=== PATIENT | male | born 1980 | race Two or more races ===

== ENCOUNTER 2024-02-23 18:34 | Emergency (ER) | payer SELFPAY ==
[~2024-02-23] VITALS: Ht 170.2 cm; Wt 117.3 kg
[2024-02-23 19:18] VITALS: BP 131/73; PULSE 92; RESP 18; TEMP 98.3; O2SAT 96
[2024-02-23] MEDS ORDERED: HYDR-3682 PO (19:35)
[2024-02-23] MEDS ORDERED: CEPH250C PO (19:35)
[2024-02-23] MEDS: CEPHALEXIN 250 MG CAP PO ONE (19:46)
[2024-02-23] MEDS: IBUPROFEN 800 MG TAB PO ONE (19:47)
[2024-02-23] MEDS: DexAMETHasone SOD PHOS 10MG/1ML VIAL INJ IM ONE (19:47)
[2024-02-23] MEDS: TETANUS-DIPTH-ACEL PERTUSSIS 0.5ML SYR Tdap IM ONE (19:48)
== END 2024-02-23 19:56 | disposition home or self-care (01) ==
LOC: ER 18:41
DX: S90.861A Insect bite (nonvenomous), right foot, initial encounter (principal); S80.862A Insect bite (nonvenomous), left lower leg, initial encounter; L08.9 Local infection of the skin and subcutaneous tissue, unspecified; W57.XXXA Bitten or stung by nonvenomous insect and other nonvenomous arthropods, initial encounter; Y93.89 Activity, other specified; Y92.89 Other specified places as the place of occurrence of the external cause; Y99.8 Other external cause status
CPT/HCPCS: 90471; 90715; 96372; 99284; J1100

== ENCOUNTER 2024-03-07 21:42 | Emergency (ER) | payer SELFPAY ==
[~2024-03-07] VITALS: Ht 170.2 cm; Wt 114.8 kg
[~2024-03-07 21:42] MED LIST: CEPH250C PO; HYDR-3682 PO
[2024-03-07] MEDS: LIDOCAINE VISCOUS 2% 15ML UD PO ONE (22:48)
[2024-03-07] MEDS: MAALOX PLUS or MAALOX 30 ML PO ONE (22:48)
[2024-03-07 22:49] VITALS: BP 130/83; PULSE 89; RESP 17; TEMP 98.7; O2SAT 95
[2024-03-07 22:51] LABS: Basophils # (auto) 0.1 10 ^3/uL (0-0.2); Basophils % (auto) 0.6 % (0.0-2.0); Eosinophils # (auto) 0.2 10 ^3/uL (0-0.8); Eosinophils % (auto) 1.1 % (0.0-7.0); Hematocrit 45.2 % (41.0-53.0); Hemoglobin 15.2 g/dL (13.5-17.5); Lymphocytes # (auto) 3.1 10 ^3/uL (0.4-5.4); Lymphocytes % (auto) 18.2 % (10.0-50.0); Mean Corpuscular Hemoglobin 31.5 pg (28.0-32.0); Mean Corpuscular Hgb Conc. 33.7 g/dL (32.0-36.0); Mean Corpuscular Volume 93.6 fL (80.0-100.0); Monocytes # (auto) 1.1 10 ^3/uL (0-1.3); Monocytes % (auto) 6.5 % (0.0-12.0); Neutrophils # (auto) 12.5 10 ^3/uL (1.6-8.6); Neutrophils % (auto) 73.6 % (37.0-80.0); Nucleated Red Blood Cells % 0.1 %; Red Blood Cells 4.82 10^6/uL (4.5-5.90); Red Cell Distribution Width 13.2 % (11.8-14.3)
[2024-03-07 22:56] LABS: Chloride 104 mmol/L (98-107); Potassium 3.8 mmol/L (3.5-5.1); Sodium 136 mmol/L (136-145)
[2024-03-07 22:57] LABS: Anion Gap 7 (5-15); Calcium 9.6 mg/dL (8.7-10.4); Carbon Dioxide 25 mmol/L (20-30)
[2024-03-07 23:02] LABS: BUN/Creatinine Ratio 7.2 (10.0-20.0); Blood Urea Nitrogen 6 mg/dL (9-23); Glucose 134 mg/dL (74-106); Lipase 33 U/L (12-53)
[2024-03-08] MEDS ORDERED: METR-344 PO (00:09)
[2024-03-08] MEDS ORDERED: OMEP-335 PO (00:09)
[2024-03-08] MEDS ORDERED: PANTOPRAZOLE 40 MG TAB PO ONE (00:15)
== END 2024-03-08 01:20 | disposition home or self-care (01) ==
LOC: ER 21:42
DX: K52.9 Noninfective gastroenteritis and colitis, unspecified (principal); F10.10 Alcohol abuse, uncomplicated
CPT/HCPCS: 36415; 74176; 80048; 83690; 85025

== ENCOUNTER 2024-12-25 22:43 | Emergency (ER) | payer MEDICAID ==
[~2024-12-25] VITALS: Ht 170.2 cm; Wt 114.6 kg
[~2024-12-25 22:43] MED LIST changes: +METR-344 PO; +OMEP-335 PO
[2024-12-26 00:42] VITALS: BP 144/86; PULSE 100; RESP 18; TEMP 98.4; O2SAT 95
[2024-12-26 00:44] LABS: Basophils # (auto) 0.1 10 ^3/uL (0-0.2); Basophils % (auto) 1.2 % (0.0-2.0); Eosinophils # (auto) 0 10 ^3/uL (0-0.8); Eosinophils % (auto) 0.3 % (0.0-7.0); Hematocrit 51.1 % (41.0-53.0); Hemoglobin 17.4 g/dL (13.5-17.5); Lymphocytes # (auto) 2.1 10 ^3/uL (0.4-5.4); Lymphocytes % (auto) 23.9 % (10.0-50.0); Mean Corpuscular Hgb Conc. 34.1 g/dL (32.0-36.0); Mean Corpuscular Volume 93.9 fL (80.0-100.0); Monocytes # (auto) 1.1 10 ^3/uL (0-1.3); Monocytes % (auto) 12.6 % (0.0-12.0); Neutrophils # (auto) 5.5 10 ^3/uL (1.6-8.6); Nucleated Red Blood Cells % 0.1 %; Platelet Count (auto) 384 10^3/uL (140-450); Red Blood Cells 5.45 10^6/uL (4.5-5.90); White Blood Cell 8.9 10^3/uL (4.4-10.8)
[2024-12-26 00:56] LABS: Alkaline Phosphatase 82 U/L (46-116); Anion Gap 7 (5-15); BUN/Creatinine Ratio 7.3 (10.0-20.0); Bilirubin, Total 0.5 mg/dL (0.2-1.0); Calcium 9.7 mg/dL (8.7-10.4); Carbon Dioxide 30 mmol/L (20-31); Chloride 99 mmol/L (98-107); Lipase 36 U/L (12-53); Potassium 4.4 mmol/L (3.5-5.1); Sodium 136 mmol/L (136-145); Total Protein 7.8 g/dL (5.7-8.2)
[2024-12-26 01:01] LABS: Alanine Aminotransferase 80 U/L (7-40); Albumin 4.9 g/dL (3.2-4.8); Aspartate Aminotransferase 55 U/L (13-40); Blood Urea Nitrogen 6 mg/dL (9-23); Glucose 124 mg/dL (74-106)
--- NOTE | 2024-12-26 01:32 | DVH ---
Exam: CT CT AB PEL WO CON-NO ORAL OR IV History: abd pain Comparison Study: None available Technique: Multidetector spiral CT of the abdomen was performed from lung bases to pubic symphysis. Imaging was performed without IV contrast. Axial, coronal and sagittal multiplanar reformats were ob tained from the axial data set by the technologist. Radiation Dose : 1. Abdomen/Pelvis: CTDIvol mGy, DLP mGy*cm. Findings: Evaluation of solid organs is limited due to lack of intravenous contrast use. Lung Bases: No abnormality demonstrated. Liver: Liver is normal in size but demonstrates diffuse decreased density consistent with fatty infil tration. No focal lesions noted. Gallbladder and Biliary Tree: No abnormality demonstrated. Spleen: Very small spleen measuring 2.6 cm is noted in the LUQ. Pancreas: No abnormality demonstrated. Adrenal Glands: No abnormality demonstrated. Kidneys: No abnormality demonstrated. Bladder: Grossly unremarkable for degree of distention. Bowel: Stomach appears grossly unremarkable. No abnormally dilated or thick walled loops of large or small bowel noted. Appendix appears unremarkable. Ascites: Absent Lymphadenopathy: No evidence of lymphadenopathy. Abdominal Wall and Mesentery: Unremarkable. Vasculature: Unremarkable. Pelvic Organs: Unremarkable. Musculoskeletal: No bony lesions or fracture. IMPRESSION: No acute abdominal or pelvic findings. Fatty infiltration of the liver. Very small spleen. Radiation optimization: All CT scans at this facility use at least one of these dose optimization chet hniques: automated exposure control mA and/or kV adjustment per patient size (includes targeted exam s where dose is matched to clinical indication) or iterative reconstruction.
--- NOTE | 2024-12-26 01:59 | ED.PDOC ---
History of Present Illness HPI Comments 44-year-old male complaining of right upper quadrant abdominal pain. Patient was started today. Nothing makes it better, nothing makes it worse. Patient was report daily drinking, alcohol abuse. Does report a history of fatty liver. No fever no chills. States he was had some mild nausea vomiting and diarrhea. Chief Complaint: Abdominal Pain Time Seen by MD: 00:02 Reviewed Notes: Nurses Notes Allergies: Coded Allergies: NO KNOWN ALLERGIES (Unverified , 02/23/24) Home Meds Active Scripts Omeprazole (Omeprazole) 20 Mg Tab, 20 MG PO DAILY for 14 Days, #14 TAB Prov:HODA [facility] 03/08/24 Metronidazole (Flagyl) 500 Mg Tab, 1 TAB PO TID for 7 Days, #21 TAB Prov:HUMBERTOHODA GARRISON [facility] 03/08/24 Hydroxyzine Hcl (Hydroxyzine Hcl) 25 Mg Tab, 1 TAB PO TIDPRN PRN, #20 TAB Prov:HODA PAUL [facility] 02/23/24 Cephalexin (KEFLEX CAPSULE) 250 Mg Cp, 1 CAP PO QID for 7 Days, #28 CAP Prov:HUMBERTO,HODA Elliott [facility] 02/23/24 Information Source: Patient Mode of Arrival: Ambulatory Past Medical History PAST MEDICAL HISTORY: Denies Surgical History: Denies all surgeries Family History Family History: Reviewed,noncontributory to illness, No family hx of DM, No fam tre hx of Heart darin, No family hx of HTN, No family hx ofKidney darin, No family hx of Liver darin, No family hx of Lung darin, No family hx of Stroke, Family hx of Cancer Social History Smoker: Non-Smoker Alcohol: Occasionally Drugs: Denies Drug Use Lives In: Home Constitutional: denies: chills, diaphoresis, fatigue, fever, malaise, sweats, weakness, others EENTM: denies: blurred vision, double vision, ear bleeding, ear discharge, ear drainage, ear pain, ear ringing, eye pain, eye redness, hearing loss, mouth pain, mouth swelling, nasal discharge, nose bleeding, nose congestion, nose pain, photophobia, tearing, throat pain, throat swelling, voice changes, others Respiratory: denies: cough, hemoptysis, orthopnea, SOB at rest, shortness of breath, SOB with excertion, stridor, wheezing, others Cardiovascular: denies: chest pain, dizzy spells, diaphoresis, Dyspnea on exertion, edema, irregular heart beat, left arm pain, lightheadedness, palpitations, PND, syncope, others Gastrointestinal: reports: abdominal pain, diarrhea, nausea, vomiting; denies: abdomen distended, blood streaked bowels, constipated, dysphagia, difficulty swallowing, hematemesis, melena, poor appetite, poor fluid intake, rectal bleeding, rectal pain, others Genitourinary: denies: burning, dysuria, flank pain, frequency, hematuria, incontinence, penile discharge, penile sore, pain, testicle pain, testicle swelling, urgency, others Neurological: denies: dizziness, fainting, headache, left sided numbness, left sided weakness, numbness, paresthesia, pre-existing deficit, right sided numbness, right sided weakness, seizure, speech problems, tingling, tremors, weakness, others Musculoskeletal: denies: back pain, gout, joint pain, joint swelling, muscle pain, muscle stiffness, neck pain, others Integumetry: denies: bruises, change in color, change in hair/nails, dryness, laceration, lesions, lumps, rash, wounds, others Allergic/Immunocompromised: denies: Difficulty Healing, Frequent Infections, Hives, Itching, others Hematologic/Lymphatic: denies: anemia, blood clots, easy bleeding, easy bruising, swollen glands, others Physical Exam General Appearance: No Apparent Distress, Normal HEENT: Normal ENT Inspection, Pharynx Normal, TMs Normal Neck: Full Range of Motion, Non-Tender, Normal, Normal Inspection Respiratory: Chest Non-Tender, Lungs Clear, No Accessory Muscle Use, No Respiratory Distress, Normal Breath Sounds Cardiovascular: No Edema, No JVD, No Murmur, No Gallop, Normal Peripheral Pulses, Regular Rate/Rhythm Breast Exam: Deferred Gastrointestinal: No Organomegaly, Non Tender, No Pulsatile Mass, Normal Bowel Sounds, RUQ (Tender to palpation), Soft Genitalia: Deferred Pelvic: Deferred Rectal: Deferred Extremities: No calf tenderness, Normal capillary refill, Normal inspection, Normal range of motion, Non-tender, No pedal edema Musculoskeletal : Apperance: Normal Neurologic: Alert, 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 Was a procedure done?: No Differential Dx Considerations may include: Hepatitis, cholecystitis, gastroenteritis, constipation, small bowel obstruction X-Ray, Labs, Meds, VS Vital Signs Date Time Temp Pulse Resp B/P (MAP) Pulse Ox O2 Delivery O2 Flow Rate FiO2 12/26/24 00:42 Room Air* 0 21 12/26/24 00:42 98.4 100 18 144/86 (105) 95 98.4 12/25/24 23:00 98.4 101 18 149/96 (113) 95 98.4 Lab Test 12/26/24 00:22 Range/Units White Blood Count 8.9 4.4-10.8 10^3/uL Red Blood Count 5.45 4.5-5.90 10^6/uL Hemoglobin 17.4 13.5-17.5 g/dL Hematocrit 51.1 41.0-53.0 % Mean Corpuscular Volume 93.9 80.0-100.0 fL Mean Corpuscular Hemoglobin 32.0 28.0-32.0 pg Mean Corpuscular Hemoglobin Concent 34.1 32.0-36.0 g/dL Red Cell Distribution Width 14.0 11.8-14.3 % Platelet Count 384 140-450 10^3/uL Mean Platelet Volume 8.2 6.9-10.8 fL Neutrophils (%) (Auto) 62.0 37.0-80.0 % Lymphocytes (%) (Auto) 23.9 10.0-50.0 % Monocytes (%) (Auto) 12.6 H 0.0-12.0 % Eosinophils (%) (Auto) 0.3 0.0-7.0 % Basophils (%) (Auto) 1.2 0.0-2.0 % Neutrophils # (Auto) 5.5 1.6-8.6 10 ^3/uL Lymphocytes # (Auto) 2.1 0.4-5.4 10 ^3/uL Monocytes # (Auto) 1.1 0-1.3 10 ^3/uL Eosinophils # (Auto) 0 0-0.8 10 ^3/uL Basophils # (Auto) 0.1 0-0.2 10 ^3/uL Nucleated Red Blood Cells 0.1 % Sodium Level 136 136-145 mmol/L Potassium Level 4.4 3.5-5.1 mmol/L Chloride Level 99 98-107 mmol/L Carbon Dioxide Level 30 20-31 mmol/L Anion Gap 7 5-15 Blood Urea Nitrogen 6 L 9-23 mg/dL Creatinine 0.82 0.700-1.30 mg/dL Glomerular Filtration Rate Calc 112 >90 mL/min BUN/Creatinine Ratio 7.3 L 10.0-20.0 Serum Glucose 124 H 74-106 mg/dL Calcium Level 9.7 8.7-10.4 mg/dL Total Bilirubin 0.5 0.2-1.0 mg/dL Aspartate Amino Transferase (AST) 55 H 13-40 U/L Alanine Aminotransferase (ALT) 80 H 7-40 U/L Alkaline Phosphatase 82 46-116 U/L Total Protein 7.8 5.7-8.2 g/dL Albumin 4.9 H 3.2-4.8 g/dL Lipase 36 12-53 U/L X-Ray, Labs, Meds, VS Comment Imaging: X-rays and CT scans were reviewed and interpreted by this provider, imaging shows no fractures and no pathological disease. Pending radiology review. Laboratory: Labs reviewed and interpreted by this provider. No significant abnormalities noted. Patient has prior medical visits reviewed. Med reconciliation performed Vital signs reviewed Time of 1ST Reevaluation: 01:58 Reevaluation 1ST: Unchanged Patient Education/Counseling: Diagnosis, Treatment, Need For Follow Up (Follow up with PCP in the next 2-4 days. Return to emergency department if symptoms worsen.) Family Education/Counseling: Diagnosis Departure 1 Departure Time of Disposition: 01:57 Impression: Primary Impression: Non-specific colitis Additional Impression: Gastritis Qualified Codes: K29.70 - Gastritis, unspecified, without bleeding Disposition: 01 HOME / SELF CARE / HOMELESS Condition: Fair Discharged With: Self Critical Care Note Critical Care Time?: No Stability Stability form required: No Heart Score Heart Score: Heart Score Response (Comments) Value History N/A 0 EKG N/A 0 Age N/A 0 Risk Factors N/A 0 Troponin N/A 0 Total 0 TOSIN AMIN December 26, 2024 01:59
== END 2024-12-26 02:40 | disposition home or self-care (01) ==
LOC: ER 22:51
DX: K29.70 Gastritis, unspecified, without bleeding (principal); K52.9 Noninfective gastroenteritis and colitis, unspecified; Z79.899 Other long term (current) drug therapy
CPT/HCPCS: 36415; 74176; 80053; 83690; 85025